=== PATIENT | female | born 1975 | race African-American/Black ===

== ENCOUNTER → 2016-05-05 | Outpatient (CLI) | payer OTHER ==
[2016-05-05 07:26] LABS: AUTOMATED NEUTROPHIL # 1.2 TH/MM3 (1.8-7.7); BASOPHIL % 0.5 % (0.0-2.0); EOSINOPHIL # 0.2 TH/MM3 (0-0.4); EOSINOPHIL % 4.7 % (0.0-4.0); HEMATOCRIT 39.2 % (35.0-46.0); HEMO FLAGS DIFF FINAL; LYMPH % 50.6 % (9.0-44.0); MEAN CELL VOLUME 86.6 FL (80.0-100.0); MEAN CORPUSCULAR HEMOGLOBIN 30.4 PG (27.0-34.0); MEAN CORPUSCULAR HGB CONC 35.1 % (32.0-36.0); MONO % 13.7 % (0.0-8.0); NEUT % 30.5 % (16.0-70.0); PLATELET COUNT 213 TH/MM3 (150-450); RED BLOOD COUNT 4.52 MIL/MM3 (4.00-5.30); RED CELL DISTRIBUTION WIDTH 13.7 % (11.6-17.2); WHITE BLOOD COUNT 3.9 TH/MM3 (4.0-11.0)
[2016-05-05 07:37] LABS: ANION GAP 5 MEQ/L (5-15); AST (GOT) 16 U/L (15-37); BICARBONATE 28.1 MEQ/L (21.0-32.0); BLOOD UREA NITROGEN 10 MG/DL (7-18); CHLORIDE 106 MEQ/L (98-107); GLOMERULAR FILTRATION RATE 94 ML/MIN (>89); GLUCOSE,FASTING 83 MG/DL (74-99); POTASSIUM 3.8 MEQ/L (3.5-5.1); SODIUM (NA) 139 MEQ/L (136-145)
[2016-05-05 07:49] LABS: ALKALINE PHOSPHATASE 41 U/L (45-117); ALT (GPT) 21 U/L (10-53); HDL CHOLESTEROL 85.7 MG/DL (40.0-60.0); LDL CHOLESTEROL 77 MG/DL (0-99); TOTAL BILIRUBIN ADULT 0.8 MG/DL (0.2-1.0)
[2016-05-05 16:48] LABS: HEMOGLOBIN A1a 0.6 %; HEMOGLOBIN A1b 0.4 %; HEMOGLOBIN Ao 54.1 %; HEMOGLOBIN F 0.8 %
== END ==
LOC: CLAB 06:54
PROVIDERS: ATTEND Obstetrics & Gynecology
DX: E78.2 Mixed hyperlipidemia (principal); Z13.1 Encounter for screening for diabetes mellitus
CPT/HCPCS: 36415; 80053; 80061; 83036; 84443; 85025

== ENCOUNTER 2016-06-27 13:26 | Day surgery (SDC) | payer OTHER ==
[2016-06-27 13:38] VITALS: BP 126/74; PULSE 83; RESP 20; TEMP 99; O2SAT 97
--- NOTE | 2016-06-28 11:55 | RADRPT ---
EXAM DATE/TIME: 06/27/2016 00:00 [place] COMPARISON : No previous studies available for comparison. INDICATIONS : <consult for uterine fibroid embolization<?>> OBJECTIVE: Temperature: 99 Heart Rate: 83 Blood Pressure: 126/74 Respiratory: 18 Oximetry: 97 PNEUMONIA VACCINE: HISTORY OF PRESENT ILLNESS: ? PAST MEDICAL HISTORY : enlarged uterine fibroids PAST SURGICAL HISTORY : fibroid removal SOCIAL HISTORY : Social alcohol use. NKDA cranberry extract 1 tab q.d. mvi 1 tab q.d. biotin 1 tab q.i.d. PHYSICAL EXAMINATION: CV: Regular rate and rhythm. Lungs: Clear to auscultation. Abdomen: Soft, non-tender. No masses or organomegaly. Positive bowel sounds. IMAGING STUDIES: Patient's previous pelvic ultrasound and pelvic MRI from [facility] were reviewed. These show ed multiple large fibroids measuring upwards of 7.1 cm in diameter. ASSESSMENT: Fibroid uterus PLAN: Patient currently has one child. She states that she would like to get again but feels that is unlikely. She was very concerned that the procedure could push her into ovarian failure and e nicolasa menopause. I did discuss with her that that was a distinct possibility considering her age and d isease burden. I've asked her to take a few days and think about the procedure. I will call her on to see how she wants to proceed. TIME SPENT: 20 minutes James Jacobson MD on June 28, 2016 at 11:38 Board Certified Radiologist. This report was verified electronically.
== END 2016-06-27 14:26 | disposition home or self-care (01) ==
LOC: HRIP 13:26 → HROP 13:26
PROVIDERS: ATTEND Obstetrics & Gynecology
DX: D25.9 Leiomyoma of uterus, unspecified (principal)

== ENCOUNTER → 2016-07-22 | Outpatient (CLI) | payer OTHER ==
[2016-07-22 13:10] LABS: AUTOMATED NEUTROPHIL # 1.6 TH/MM3 (1.8-7.7); BASOPHIL % 0.9 % (0.0-2.0); EOSINOPHIL # 0.2 TH/MM3 (0-0.4); HEMATOCRIT 40.4 % (35.0-46.0); HEMO FLAGS DIFF FINAL; LYMPH % 49.3 % (9.0-44.0); LYMPHOCYTE # 2.3 TH/MM3 (1.0-4.8); MEAN CELL VOLUME 85.7 FL (80.0-100.0); MEAN CORPUSCULAR HEMOGLOBIN 29.7 PG (27.0-34.0); MEAN CORPUSCULAR HGB CONC 34.6 % (32.0-36.0); MONO % 12.3 % (0.0-8.0); NEUT % 33.5 % (16.0-70.0); PLATELET COUNT 237 TH/MM3 (150-450); RED BLOOD COUNT 4.71 MIL/MM3 (4.00-5.30); RED CELL DISTRIBUTION WIDTH 14.1 % (11.6-17.2); WHITE BLOOD COUNT 4.7 TH/MM3 (4.0-11.0)
== END ==
LOC: CLAB 12:50
PROVIDERS: ATTEND Internal Medicine Hematology & Oncology
DX: D72.819 Decreased white blood cell count, unspecified (principal)
CPT/HCPCS: 36415; 85025; 85060

== ENCOUNTER → 2016-08-17 | Outpatient (CLI) | payer OTHER ==
[2016-08-17 13:04] LABS: IMMUNOGLOBULIN A 134 MG/DL (78-430); IMMUNOGLOBULIN G 995 MG/DL (670-1640); IMMUNOGLOBULIN M 32 MG/DL (55-338)
[2016-08-20 19:52] LABS: BETA2 GLYCOPROTEIN I AB IGA LESS THAN 9.0 SAU (< OR = 20)
[2016-08-21 13:51] LABS: PHOS SERINE AB IGA LESS THAN 20 U/mL (()); PHOS SERINE AB IGG LESS THAN 10 U/mL (()); PHOS SERINE AB IGM LESS THAN 25 U/mL (())
== END ==
LOC: ELAB 08:16
PROVIDERS: ATTEND Internal Medicine Hematology & Oncology
DX: D72.819 Decreased white blood cell count, unspecified (principal)
CPT/HCPCS: 36415; 82607; 82746; 82784; 86038; 86146; 86147; 86148

== ENCOUNTER 2016-10-31 05:50 | Inpatient (IN) | payer OTHER ==
[~2016-10-31] VITALS: Ht 154.9 cm; Wt 59.0 kg
[2016-10-31] MEDS: LACTATED RINGER'S 1000 ML IV PRN ×3 (06:15→11:55)
[2016-10-31] MEDS ORDERED: POVIDONE IODINE 5% (ANTISEPSIS KIT) 4 APPLICATIONS EACH NARE PRN (06:15)
[2016-10-31] MEDS ORDERED: METOPROLOL TARTRATE 25 MG TAB PO PRN (06:15)
[2016-10-31] MEDS ORDERED: CHLORHEXIDINE GLUCONATE 2 % 1 PACK (2 CLOTHS) TOPICAL PRN (06:15)
[2016-10-31] MEDS ORDERED: SODIUM CHLORID 0.9% 500 ML IV PRN (06:15)
[2016-10-31] MEDS ORDERED: INSULIN HUMAN REGULAR 1,000 UNITS/10 ML VIAL SQ PRN (06:15)
[2016-10-31] MEDS ORDERED: MULTTAB67 PO (06:21)
[2016-10-31] MEDS ORDERED: BIOTCAP PO (06:21)
[2016-10-31] MEDS ORDERED: CRANCAP2 PO (06:21)
[2016-10-31] MEDS: ceFAZolin 2 GM PREMIX 50 ML IV SCH ×2 (06:25→14:04)
[2016-10-31 06:43] LABS: AUTOMATED NEUTROPHIL # 1.6 TH/MM3 (1.8-7.7); BASOPHIL % 0.9 % (0.0-2.0); EOSINOPHIL # 0.2 TH/MM3 (0-0.4); EOSINOPHIL % 5.1 % (0.0-4.0); HEMATOCRIT 40.8 % (35.0-46.0); HEMO FLAGS DIFF FINAL; LYMPH % 45.6 % (9.0-44.0); LYMPHOCYTE # 1.9 TH/MM3 (1.0-4.8); MEAN CELL VOLUME 87.5 FL (80.0-100.0); MEAN CORPUSCULAR HEMOGLOBIN 30.1 PG (27.0-34.0); MEAN CORPUSCULAR HGB CONC 34.4 % (32.0-36.0); MONO % 11.7 % (0.0-8.0); NEUT % 36.7 % (16.0-70.0); PLATELET COUNT 237 TH/MM3 (150-450); RED BLOOD COUNT 4.66 MIL/MM3 (4.00-5.30); RED CELL DISTRIBUTION WIDTH 14.4 % (11.6-17.2); WHITE BLOOD COUNT 4.2 TH/MM3 (4.0-11.0)
[2016-10-31] MEDS ORDERED: BUPIVACAINE HCL PF 0.5% 30 ML VIAL ONE (07:03)
[2016-10-31] MEDS ORDERED: FAMOTIDINE 20 MG/2 ML VIAL ONE (07:08)
[2016-10-31] MEDS ORDERED: ACETAMINOPHEN 1000 MG/100 ML VIAL IV ONE (07:08)
--- NOTE | 2016-10-31 07:34 | MH ---
cc: KANNAN JOHNSON DATE OF 1975 DATE OF ADMISSION: 10/31/2016 HISTORY The patient is a 41-year-old 3, para 1-0-2-1 who presents with a history of increasing pelvic pressure and discomfort and desires intervention for large uterine fibroids. Her cycles are regular with normal flow but she is having increasing discomfort from the pelvic pressure and difficulty with her clothing fitting and desires operative intervention. PAST MEDICAL HISTORY Her past medical history is negative. PAST SURGICAL HISTORY 1. She had abdominal myomectomy in 2003. 2. She had a section 2004. OB HISTORY She had one delivered by section, two first trimester miscarriages, no surgery needed. 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 FAMILY HISTORY She has a son with SC disease. SOCIAL HISTORY Negative for cigarettes, alcohol or street drugs. 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 She is a [employer]an and will not accept blood products. ALLERGIES NONE. REVIEW OF SYSTEMS Review of all of her systems is negative. PHYSICAL EXAMINATION VITAL SIGNS: Her blood pressure is 108/74, her weight is 137, her height is 5' 1". GENERAL: She is in no acute distress. HEART: Regular rate and rhythm. LUNGS: Clear to auscultation bilaterally. ABDOMEN: Soft. PELVIC: She does have an approximately 20 weeks size bulky, fibroid uterus. Ultrasound confirms large fibroid uterus measuring 19 x 14 x 8 cm. The largest fibroids are 6-7 cm and there are multiple fibroids noted on ultrasound. IMPRESSION Uterine fibroids, pelvic pain and pressure. PLAN The plan is for a laparoscopic supracervical hysterectomy with bilateral salpingectomy. The patient understands there is increased risk of open surgery given her history, however, the patient desires trial of laparoscopic surgery first. Risks, benefits and alternatives have been reviewed. We also reviewed the risks of using the morcellator. The patient understands the risks and is agreeable. MD PAT Gibbons/ANSHU /9:37 PM /7:30 AM
[2016-10-31] MEDS ORDERED: ZOLPIDEM TARTRATE 5 MG TAB PO PRN (10:00)
[2016-10-31] MEDS ORDERED: SODIUM CHLORIDE 0.9% FLUSH 10 ML FLUSH IV FLUSH PRN (10:00)
[2016-10-31] MEDS ORDERED: NALOXONE HCL 0.4 MG/ML AMP IV PRN (10:00)
[2016-10-31] MEDS ORDERED: PROMETHAZINE INJ 25 MG/ML VIAL IM PRN (10:00)
[2016-10-31] MEDS ORDERED: ONDANSETRON ODT 4 MG TAB PO PRN (10:00)
[2016-10-31] MEDS ORDERED: IBUPROFEN 600 MG TAB PO PRN (10:00)
[2016-10-31] MEDS: LACTATED RINGER'S 1000 ML INJ 1,000 ML IV SCH ×2 (10:00→17:54)
[2016-10-31] MEDS ORDERED: diphenhydrAMINE HCL 25 MG CAP PO PRN (10:00)
[2016-10-31] MEDS ORDERED: oxyCODONE/ACETAMINOPHEN 5 MG/325 MG TAB PO PRN ×2 (10:00)
[2016-10-31] MEDS ORDERED: ONDANSETRON HCL 4 MG/2 ML VIAL IVP PRN (10:00)
[2016-10-31] MEDS ORDERED: diphenhydrAMINE HCL 50 MG/ML VIAL IV PRN (10:00)
[2016-10-31] MEDS ORDERED: DO NOT ADM ANY ANTICOAGULANT DRUGS PRN (10:08)
[2016-10-31] MEDS ORDERED: MIDAZOLAM HCL 2 MG/2 ML VIAL ONE (10:17)
[2016-10-31] MEDS ORDERED: fentaNYL CITRATE 250 MCG/5 ML AMP ONE (10:17)
[2016-10-31] MEDS ORDERED: *morphine SULFATE 8 MG/ML PERIprocedure ONLY ONE (10:40)
[2016-10-31] MEDS ORDERED: LACTATED RINGER'S 1000 ML INJ 2,000 ML IV ONE (12:00)
[2016-10-31] MEDS ORDERED: PHENYLEPH/NS 1000 MCG/10 ML SYR IV ONE (12:00)
[2016-10-31] MEDS ORDERED: NEOSTIGMINE METHYLSULFATE 10 MG/10 ML VIAL IV PUSH ONE (12:00)
[2016-10-31] MEDS ORDERED: PROPOFOL 200 MG/20 ML AMP IV ONE (12:00)
[2016-10-31] MEDS ORDERED: ePHEDrine/NS 25 MG/5 ML SYR IV ONE (12:00)
[2016-10-31] MEDS ORDERED: ONDANSETRON HCL 4 MG/2 ML VIAL IV PUSH ONE (12:00)
[2016-10-31] MEDS: MORPHINE SULFATE 30 MG/30 ML PCA IV SCH ×2 (12:34→12:35)
[2016-10-31] MEDS: DOCUSATE SODIUM 100 MG CAP PO SCH ×2 (13:00→22:03)
[2016-10-31 13:01] VITALS: BP 99/52; PULSE 66; RESP 19; TEMP 95.1; O2SAT 100
[2016-10-31] MEDS: PCA - TOTAL MG MORPHINE DELIVERED PER SHIFT SCH ×2 (14:00→22:00)
[2016-10-31 16:00] VITALS: BP 92/82; PULSE 86; RESP 20; TEMP 96.9; O2SAT 98
[2016-10-31 17:34] VITALS: BP 102/66; RESP 20; O2SAT 99
[2016-10-31] MEDS: KETOROLAC TROMETHAMINE 30 MG/ML (IVP) VIAL IVP PRN ×2 (17:49→22:10)
[2016-10-31 21:30] VITALS: BP 92/58; PULSE 80; RESP 17; TEMP 98.2; O2SAT 96
[2016-10-31] MEDS: SODIUM CHLORIDE 0.9% FLUSH 10 ML FLUSH IV FLUSH SCH (22:09)
[2016-11-01] VITALS (7 sets, daily range): BP systolic 93–101; BP diastolic 52–60; PULSE 80–96; RESP 15–18; TEMP 98–100.4; O2SAT 95–100
[2016-11-01] MEDS: LACTATED RINGER'S 1000 ML INJ 1,000 ML IV SCH ×3 (01:54→09:54)
[2016-11-01] MEDS: PCA - TOTAL MG MORPHINE DELIVERED PER SHIFT SCH ×2 (04:57→14:00)
--- NOTE | 2016-11-01 07:42 | MP ---
cc: COSTA JOHNSON DATE OF SURGERY 10/31/2016 PREOPERATIVE DIAGNOSES Uterine fibroid. Pelvic pain and pressure. POSTOPERATIVE DIAGNOSES Uterine fibroid. Pelvic pain and pressure. PROCEDURE Diagnostic laparoscopy, supracervical hysterectomy with bilateral salpingectomy. SURGEON Costa Johnson MD ASSISTANCE Munir Ye MD ANESTHESIA General. ESTIMATED BLOOD LOSS 500 cc. IV FLUIDS 2500 cc of LR. URINE OUTPUT 450 cc of clear yellow urine at the end of the case. COUNTS Correct x 2. DISPOSITION Stable in the PACU. INDICATIONS The patient is a 41-year-old female with a history of uterine fibroids, pelvic pressure and pain who desired operative intervention. After informed consent was obtained, the patient was prepped and draped in normal sterile fashion for surgery. Her umbilical fold was injected with 0.25% Marcaine with epinephrine and a 5-mm skin incision was made. The 5-mm laparoscope was attempted to be inserted under direct visualization. Initially we did encounter the fundus as the laparoscope was inserted. However, this was then freed of the uterus and pneumoperitoneum was obtained. Given the large size of the uterus and complexity of the case with posterior lower uterine segment fibroid and the patient Synagogue status, the decision was made to convert from laparoscopy to open. Thus the laparoscope was removed and the abdomen was deflated. The patient's previous incision was removed in elliptical fashion. The underlying layer of fascia was reached using the Bovie. The fascia was dissected off superiorly and inferiorly from the rectus muscles. The rectus muscles were in the midline. The peritoneum was identified high up and entered sharply. A large, bulky fibroid uterus was immediately encountered. The area where we had previously incised was noted without difficulty and not noted to be bleeding at all. There were some dense adhesions to the anterior portion of the uterus likely from the bladder. The uterus was elevated and delivered through the Pfannenstiel skin incision. The round ligaments were doubly clamped, cut and suture ligated initially on the patient's left and then on the patient's right. The vesicouterine peritoneum was attempted to be identified. There were some thick adhesions encountered. Attention was then turned to the uteroovarian ligament and fallopian tube. The pedicle on the left side was created clamping, cutting and suture ligating. Successive bites were taken on the left side until the level of the uterine artery was then reached. Once this was done, the same procedure was carried out on the patient's right side, care being taken to go around the patient's fibroids. On the left side it should also be noted that the vesicouterine peritoneum was also taken down and a nice bladder flap was created. A bladder blade was also inserted. A straight Cecil was placed on the patient's left side, clamping, cutting and suture ligating in order to get about the cervix. I did have to place clamps and work around the fibroid on the patient's right side, clamping, cutting and suture ligating as this seemed to go into the broad ligament a little bit with a large lower uterine segment fibroid into the broad ligament. The ureter was noted to be down and well out of the operative field, clamping, cutting and suture ligating. The uterine fundus was amputated at this point so that this lower uterine segment fibroid could be better assessed and then ultimately clamped, cut and blood supply ligated and peeled off and sent to pathology for further identification. Next, the patient's cervix was assessed and appeared to be approximately 4 cm in length. Thus the decision was made at this point to amputate a little more of the cervix, but in order to not loose any more blood given the patient's 500 cc blood loss at this point. Approximately 2 cm of the cervix was then clamped, cut and amputated and the cervix was oversewn in an imbricating fashion. The cervical stump was noted to be hemostatic, clamping, cutting and suture ligated. Once this was done, the cul-de-sac was noted to be hemostatic after copious irrigation. The fallopian tubes were clamped and cut and suture ligated and passed off to be sent to pathology for further identification. Once this was done, the pelvis was again copiously irrigated. All pedicles were noted to be hemostatic. All laparotomy sponges were removed from the patient's abdomen and the bowel was allowed to fall into place naturally. The fascia was reapproximated using 0 Vicryl suture. The skin was reapproximated using 4-0 Monocryl suture in a subcuticular fashion. The patient was then awakened and extubated and taken to the recovery room in stable condition. MD PAT Gibbons/ELADIO /11:08 PM /7:22 AM
[2016-11-01] MEDS: KETOROLAC TROMETHAMINE 30 MG/ML (IVP) VIAL IVP PRN ×3 (07:55→18:42)
[2016-11-01 08:23] LABS: AUTOMATED NEUTROPHIL # 5.8 TH/MM3 (1.8-7.7); BASOPHIL % 0.2 % (0.0-2.0); EOSINOPHIL # 0.1 TH/MM3 (0-0.4); EOSINOPHIL % 0.8 % (0.0-4.0); HEMATOCRIT 28.2 % (35.0-46.0); HEMO FLAGS DIFF FINAL; LYMPH % 11.4 % (9.0-44.0); LYMPHOCYTE # 0.9 TH/MM3 (1.0-4.8); MEAN CELL VOLUME 87.6 FL (80.0-100.0); MEAN CORPUSCULAR HEMOGLOBIN 30.3 PG (27.0-34.0); MEAN CORPUSCULAR HGB CONC 34.6 % (32.0-36.0); NEUT % 76.6 % (16.0-70.0); PLATELET COUNT 188 TH/MM3 (150-450); RED BLOOD COUNT 3.22 MIL/MM3 (4.00-5.30); RED CELL DISTRIBUTION WIDTH 14.2 % (11.6-17.2); WHITE BLOOD COUNT 7.6 TH/MM3 (4.0-11.0)
[2016-11-01 08:41] LABS: BICARBONATE 28.7 MEQ/L (21.0-32.0); POTASSIUM 3.8 MEQ/L (3.5-5.1)
[2016-11-01] MEDS: LACTATED RINGER'S 1000 ML IV PRN (18:35)
[2016-11-01] MEDS: SODIUM CHLORIDE 0.9% FLUSH 10 ML FLUSH IV FLUSH SCH (18:37)
[2016-11-01] MEDS: DOCUSATE SODIUM 100 MG CAP PO SCH ×2 (18:41→21:00)
[2016-11-01] MEDS: MORPHINE SULFATE 30 MG/30 ML PCA IV SCH (18:46)
--- NOTE | 2016-11-01 22:09 | HHI.PR ---
Subjective Remarks pain is well controlled, juan po, +void, mild nausea, no vomiting. denies dizziness/lightheadedness. Objective Vital Signs Vital Signs Date Time Temp Pulse Resp B/P (MAP) Pulse Ox O2 Delivery O2 Flow Rate FiO2 11/01/16 20:00 100.4 92 18 101/59 (73) 100 11/01/16 18:51 18 11/01/16 18:46 18 11/01/16 16:00 98.9 80 15 101/60 (74) 99 11/01/16 14:50 18 11/01/16 14:00 18 11/01/16 14:00 18 11/01/16 12:00 98.7 80 15 99/54 (69) 100 11/01/16 09:19 95 11/01/16 08:00 98.7 82 16 101/55 (70) 100 11/01/16 04:57 16 11/01/16 04:40 98.0 86 16 93/52 (66) 98 11/01/16 00:07 98.2 96 16 93/53 (66) 99 I/O 10/31/16 10/31/16 10/31/16 11/01/16 11/01/16 11/01/16 07:00 15:00 23:00 07:00 15:00 23:00 Intake Total 50 ml 2990 ml 1415 ml 850 ml 627 ml Output Total 1150 ml 600 ml 2700 ml 1600 ml 700 ml Balance 50 ml 1840 ml 815 ml -1850 ml -973 ml -700 ml Intake Oral 240 ml 627 ml IV Total 50 ml 2750 ml 1415 ml 850 ml Output Urine Total 650 ml 600 ml 2700 ml 1600 ml 700 ml Estimated Blood Loss 500 ml # Sanitary Pads 1 Pads 1 Pads 1 Pads Result Diagram: 11/01/16 0806 11/01/16 0806 Objective Remarks PULM- CTA CV-regular rate and rhythm. Abdomen is soft and non-distended, +bs Incision is clean and dry. Ext no CCE. 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 Costa Dennis MD Nov 01, 2016 22:09
[2016-11-01] MEDS: METOCLOPRAMIDE HCL 10 MG/2 ML VIAL IV PUSH SCH (23:51)
[2016-11-02] VITALS: BP 98/54; PULSE 84; RESP 16; TEMP 97.3; O2SAT 99
[2016-11-02] MEDS: SODIUM CHLORIDE 0.9% FLUSH 10 ML FLUSH IV FLUSH SCH ×2 (00:05→09:00)
[2016-11-02] MEDS: KETOROLAC TROMETHAMINE 30 MG/ML (IVP) VIAL IVP PRN (00:50)
[2016-11-02] MEDS: LACTATED RINGER'S 1000 ML INJ 1,000 ML IV SCH (01:50)
[2016-11-02 04:00] VITALS: BP 93/50; PULSE 87; RESP 16; TEMP 97.9; O2SAT 98
[2016-11-02] MEDS: METOCLOPRAMIDE HCL 10 MG/2 ML VIAL IV PUSH SCH (06:20)
[2016-11-02 08:00] VITALS: BP 95/63; PULSE 77; RESP 16; TEMP 98.4; O2SAT 98
--- NOTE | 2016-11-02 08:31 | HHI.OB ---
Subjective Post Operative Day: 2 Remarks doing well dc home Objective Vitals/I&O Vital Signs Date Time Temp Pulse Resp B/P (MAP) Pulse Ox O2 Delivery O2 Flow Rate FiO2 11/02/16 04:00 97.9 87 16 93/50 (64) 98 11/02/16 00:00 97.3 84 16 98/54 (69) 99 11/01/16 20:00 100.4 92 18 101/59 (73) 100 11/01/16 18:51 18 11/01/16 18:46 18 11/01/16 16:00 98.9 80 15 101/60 (74) 99 11/01/16 14:50 18 11/01/16 14:00 18 11/01/16 14:00 18 11/01/16 12:00 98.7 80 15 99/54 (69) 100 11/01/16 09:19 95 Intake & Output 11/02/16 11/02/16 07:00 19:00 Intake Total 2020 ml Output Total 1850 ml Balance 170 ml Intake Oral 620 ml IV Total 1400 ml Output Urine Total 1850 ml Result Diagram: 11/01/16 0811/01/16 0806 Objective Remarks GENERAL: Well-nourished, well-developed patient. CARDIOVASCULAR: Regular rate and rhythm without murmurs, gallops, or rubs. RESPIRATORY: Breath sounds equal bilaterally. No accessory muscle use. ABDOMEN/GI: Abdomen soft, non-tender, bowel sounds present. Incision: Clean, dry and intact. GENITOURINARY:negative. EXTREMITIES: No cyanosis or edema, non-tender, without signs of DVT. Medications and IVs Current Medications Medications (Trade) Dose Ordered Sig/Mahsa Route Start Time Stop Time Status Last Admin Lactated Ringer's 1,000 ml @ 30 mls/hr Q24H PRN IV 10/31/16 06:15 11/03/16 06:14 11/01/16 18:35 Sodium Chloride 500 ml @ 30 mls/hr [id number] PRN IV 10/31/16 06:15 11/03/16 06:14 (Lopressor) 25 mg CHILD CUSTODY EVALUATOR PRN PO 10/31/16 06:15 11/03/16 06:14 (Betadine 5% Antisepsis Kit) 1 applic CHILD CUSTODY EVALUATOR PRN EACH NARE 10/31/16 06:15 11/03/16 06:14 10/31/16 06:20 (Chlorhexidine 2% Cloth) 3 pack CHILD CUSTODY EVALUATOR PRN TOPICAL 10/31/16 06:15 11/03/16 06:14 10/31/16 05:55 (NovoLIN R INJ) See Protocol Table ... CHILD CUSTODY EVALUATOR PRN SQ 10/31/16 06:15 11/03/16 06:14 Cefazolin Sodium/ Dextrose 50 ml @ 100 mls/hr CHILD CUSTODY EVALUATOR IV 10/31/16 06:15 11/03/16 06:14 10/31/16 06:25 Lactated Ringer's 1,000 ml @ 125 mls/hr Q8H IV 10/31/16 09:54 11/01/16 04:45 (NS Flush) 2 ml UNSCH PRN IV FLUSH 10/31/16 10:00 11/02/16 00:50 (NS Flush) 2 ml BID IV FLUSH 10/31/16 21:00 11/02/16 00:05 (Motrin) 600 mg Q6H PRN PO 10/31/16 10:00 (Toradol Inj) 30 mg Q6H PRN IVP 10/31/16 10:00 11/05/16 09:59 11/02/16 00:50 (Percocet 5-325 Mg) 1 tab Q4H PRN PO 10/31/16 10:00 11/01/16 19:42 (Percocet 5-325 Mg) 2 tab Q4H PRN PO 10/31/16 10:00 (Benadryl) 25 mg Q6H PRN PO 10/31/16 10:00 (Zofran Inj) 4 mg Q6H PRN IVP 10/31/16 10:00 10/31/16 17:45 (Zofran Odt) 4 mg Q6H PRN PO 10/31/16 10:00 (Phenergan Inj) 25 mg Q6H PRN IM 10/31/16 10:00 (Colace) 100 mg Q12HR PO 10/31/16 13:00 11/01/16 18:41 (Ambien) 5 mg HS PRN PO 10/31/16 10:00 (Reglan Inj) 10 mg Q8HR IV PUSH 11/01/16 22:15 11/02/16 06:20 Assessment/Plan Problem List: (1) Fibroid tumor ICD Codes: D25.9 - Leiomyoma of uterus, unspecified Status: Resolved Qualifiers: Qualified Codes: D25.1 - Intramural leiomyoma of uterus Assessment and Plan doing well [facility] Munir Ye MD Nov 02, 2016 08:31
--- NOTE | 2016-11-02 08:32 | HHI.DCPOC ---
Discharge Care Plan Diagnosis: (1) Fibroid tumor Report Symptoms to Your Doctor -Temperature above 100.5 degrees -Redness, of incision or excessive or foul smelling drainage -Unusual pain or calf pain -Increased vaginal bleeding -Painful or difficulty urinating -Feelings of extreme sadness or anxiety after 2 weeks Goals to Promote Your Health * To prevent worsening of your condition and complications * To maintain your health at the optimal level Directions to Meet Your Goals Take your medications as prescribed Follow your dietary instruction Follow activity as directed Ensure plenty of rest for recovery Drink fluids for hydration Keep your appointments as scheduled Take your immunizations and boosters as scheduled If your symptoms worsen call your PCP, if no PCP go to Urgent Care Center or Emergency Room Smoking is Dangerous to Your Health. Avoid second hand smoke Call the 24-hour crisis hotline for domestic abuse at Munir Ye MD Nov 02, 2016 08:32
[2016-11-02] MEDS ORDERED: OXYC1TAB63 PO (08:33)
--- NOTE | 2016-11-02 08:36 | HHI.DS ---
Admission Date Oct 31, 2016 at 15:50 Discharge Date: Nov 02, 2016 Admitting Diagnosis Diagnosis: (1) Fibroid tumor Diagnosis: Principal ICD Codes: D25.9 - Leiomyoma of uterus, unspecified Status: Resolved Brief History patient had large fibroids for [facility] Hospital Course did well with SONJA dc home POD #2 Pt Condition on Discharge: Good Discharge Disposition: Discharge Home Discharge Instructions Diet Instructions: As Tolerated, No Restrictions Activities You Can Perform: Pelvic Rest Follow up Referrals: [facility] - 2 Weeks @ [facility] with Costa Dennis MD New Medications: Oxycodone-Acetaminophen (Oxycodone-Acetaminophen) 5-325 mg Tab 1 TAB PO Q4H PRN for PAIN SCALE 1 TO 5 for 7 Days, #30 TAB 0 Refills Continued Medications: Biotin (Biotin) 5 Mg Cap 10 MG PO DAILY for Nutritional Supplement, #1 BOTTLE 0 Refills Multiple Vitamin (Multiple Vitamin) 1 Tab 1 TAB PO DAILY for Nutritional Supplement, TAB 0 Refills Vitamins C & E (Cranberry Urinary Comfort) 1 Cap 1 CAP PO DAILY for Urinary Symptom Managemen, CAP 0 Refills Munir Ye MD Nov 02, 2016 08:36
[2016-11-02] MEDS: DOCUSATE SODIUM 100 MG CAP PO SCH (11:07)
[2016-11-02] MEDS: LACTATED RINGER'S 1000 ML IV PRN (11:09)
== END 2016-11-02 11:54 | disposition home or self-care (01) | DRG 743 ==
LOC: HSDC 05:50 → HSDI 09:59 → HOCB 11:18 → OBSVTOIN 15:50
PROVIDERS: ADMIT Obstetrics & Gynecology; ATTEND Obstetrics & Gynecology
PROC: 0WJJ4ZZ Inspection of Pelvic Cavity, Percutaneous Endoscopic Approach (ICD-10-PCS; 2016-10-31)
PROC: 0UT90ZZ Resection of Uterus, Open Approach (ICD-10-PCS; principal; 2016-10-31 07:24)
PROC: 0UT70ZZ Resection of Bilateral Fallopian Tubes, Open Approach (ICD-10-PCS; 2016-10-31 07:24)
DX: D25.9 Leiomyoma of uterus, unspecified (principal); Z53.31 Laparoscopic surgical procedure converted to open procedure; Z53.1 Procedure and treatment not carried out because of patient's decision for reasons of belief and group pressure
CPT/HCPCS: 80048; 85025; 88307; 94150; J0131; J0690; J1885; J2250; J2270; J2370; J2405; J2710; J2765; J3010; J7120

== ENCOUNTER → 2016-12-16 | Outpatient (CLI) | payer OTHER ==
[~2016-12-16] MED LIST: BIOTCAP PO; CRANCAP2 PO; MULTTAB67 PO; OXYC1TAB63 PO
== END ==
LOC: CLAB 12:08
PROVIDERS: ATTEND Obstetrics & Gynecology
DX: R30.9 Painful micturition, unspecified (principal)
CPT/HCPCS: 87086

== ENCOUNTER → 2017-03-08 | Outpatient (CLI) | payer OTHER ==
[2017-03-08 13:34] LABS: AUTOMATED NEUTROPHIL # 2.1 TH/MM3 (1.8-7.7); BASOPHIL % 0.5 % (0.0-2.0); EOSINOPHIL # 0.3 TH/MM3 (0-0.4); EOSINOPHIL % 6.4 % (0.0-4.0); HEMATOCRIT 39.2 % (35.0-46.0); HEMOGLOBIN 13.5 GM/DL (11.6-15.3); LYMPH % 43.2 % (9.0-44.0); LYMPHOCYTE # 2.3 TH/MM3 (1.0-4.8); MEAN CELL VOLUME 83.7 FL (80.0-100.0); MEAN CORPUSCULAR HEMOGLOBIN 28.8 PG (27.0-34.0); MEAN CORPUSCULAR HGB CONC 34.4 % (32.0-36.0); MEAN PLATELET VOLUME 8.2 FL (7.0-11.0); MONO % 11.4 % (0.0-8.0); MONOCYTE # 0.6 TH/MM3 (0-0.9); NEUT % 38.5 % (16.0-70.0); PLATELET COUNT 246 TH/MM3 (150-450); RED BLOOD COUNT 4.68 MIL/MM3 (4.00-5.30); RED CELL DISTRIBUTION WIDTH 15.3 % (11.6-17.2); WHITE BLOOD COUNT 5.4 TH/MM3 (4.0-11.0)
== END ==
LOC: CLAB 12:44
PROVIDERS: ATTEND Internal Medicine Hematology & Oncology
DX: D70.9 Neutropenia, unspecified (principal)
CPT/HCPCS: 36415; 85025